=== PATIENT | male | born 1970 | race African-American/Black ===

== ENCOUNTER 2018-06-28 07:48 | Emergency (ER) | payer OTHER ==
[2018-06-28] MEDS ORDERED: TETRACAINE HCL 0.5% OPH SOLN 4 ML OD ONE (08:42)
--- NOTE | 2018-06-28 09:12 | ER Document Report ---
ED General - General Chief Complaint: Cold Symptoms Stated Complaint: COUGH Time Seen by Provider: 06/28/18 08:21 Mode of Arrival: Ambulatory Information source: Patient Notes: 48-year-old male presents emergency department with complaints of a cough, sinus pressure, nasal discharge over the last week. Patient states that the sinus pressure and nasal discharge is resolving. He states that he is continuing to have a productive cough. He is also noted that in the last day his eyes became pink. Patient states that it started in 1 of the eyes and then spread to both. He does note to have purulent drainage from the eye. He denies any pain to the eyes. No trauma or injury. No history of sick contacts. He denies any medical problems. He is not on any medications. He states that he has been using Mucinex [id number] and it has been helping with some of his symptoms. TRAVEL OUTSIDE OF THE [place] IN LAST 30 DAYS: No - HPI Onset: Last week Onset/Duration: Gradual Quality of pain: No pain Severity: None Pain Level: Denies Associated symptoms: Productive cough, Other - sinus pressure. Exacerbated by: Denies Relieved by: Other - mucinex - Related Data Allergies/Adverse Reactions: No Known Allergies Allergy (Verified 06/28/18 07:49) Past Medical History - General Information source: Patient - Social History Smoking Status: Current Every Day Smoker Frequency of alcohol use: None Drug Abuse: Marijuana Family History: Reviewed & Not Pertinent Patient has suicidal ideation: No Patient has homicidal ideation: No - Past Medical History Cardiac Medical History: Reports: Hx Hypertension Denies: Hx Coronary Artery Disease, Hx Heart Attack Pulmonary Medical History: Reports: Hx Pneumonia - 2007 Denies: Hx Asthma, Hx Bronchitis, Hx COPD Neurological Medical History: Denies: Hx Cerebrovascular Accident, Hx Seizures Renal/ Medical History: Denies: Hx Peritoneal Dialysis Musculoskeletal Medical History: Denies Hx Arthritis Past Surgical History: Denies: Hx Pacemaker - Immunizations Hx Diphtheria, Pertussis, Tetanus Vaccination: No Review of Systems - Review of Systems Constitutional: No symptoms reported EENT: Nose discharge, Other - pink eye Respiratory: Cough Gastrointestinal: No symptoms reported Genitourinary: No symptoms reported Male Genitourinary: No symptoms reported Musculoskeletal: No symptoms reported Skin: No symptoms reported Hematologic/Lymphatic: No symptoms reported Neurological/Psychological: No symptoms reported -: Yes All other systems reviewed and negative Physical Exam - Vital signs Vitals: Temp Pulse Resp BP Pulse Ox 97.4 F 93 18 156/106 H 97 06/28/18 07:52 06/28/18 07:52 06/28/18 07:52 06/28/18 07:52 06/28/18 07:52 - Notes Notes: PHYSICAL EXAMINATION: GENERAL: Well-appearing, well-nourished and in no acute distress. HEAD: Atraumatic, normocephalic. EYES: Pupils equal round and reactive to light, extraocular movements intact, injected conjunctiva. Purulent drainage from the left eye. ENT: Nares patent, oropharynx clear without exudates. Moist mucous membranes. NECK: Normal range of motion, supple without lymphadenopathy LUNGS: Breath sounds clear to auscultation bilaterally and equal. No wheezes rales or rhonchi. HEART: Regular rate and rhythm without murmurs ABDOMEN: Soft, nontender, nondistended abdomen. No guarding, no rebound. No masses appreciated. Musculoskeletal: Normal range of motion, no pitting or edema. No cyanosis. NEUROLOGICAL: Cranial nerves grossly intact. Normal speech, normal gait. Normal sensory, motor exams PSYCH: Normal mood, normal affect. SKIN: Warm, Dry, normal turgor, no rashes or lesions noted. Course - Re-evaluation Re-evalutation: 06/28/18 09:11 Conjunctiva-was stained with fluorescein and evaluated under Marie lamp. No corneal abrasions, dendritic, or punctate lesions appreciated. 06/28/18 09:16 Patient likely has conjunctivitis. I will start antibiotic eye ointment. I will also prescribe tessalon perles, albuterol inhaler, and antibiotic for the patient's cough x 1 week. Patient instructed to take the medication prescribed as directed, to follow-up with his primary care physician this week, and to return to the emergency department for any worsening symptoms. Patient is agreeable with the plan of care. - Vital Signs Vital signs: Temp Pulse Resp BP Pulse Ox 98.4 F 81 16 152/101 H 96 06/28/18 09:27 06/28/18 09:27 06/28/18 09:27 06/28/18 09:27 06/28/18 09:27 Discharge - Discharge Clinical Impression: Cough Conjunctivitis Qualifiers: Conjunctivitis type: acute Acute conjunctivitis type: unspecified Laterality: bilateral Qualified Code(s): H10.33 - Unspecified acute conjunctivitis, bilateral Condition: Good Disposition: HOME, SELF-CARE Instructions: Conjunctivitis ([facility]), Cough Suppressant & Expectorant Medications Prescriptions: Benzonatate [Tessalon Perles 100 mg Capsule] 100 mg PO Q8HP PRN #15 capsule PRN Reason: Albuterol Sulfate [Proair HFA Inhalation Aerosol 8.5 gm MDI] 2 puff IH Q4H PRN #1 mdi PRN Reason: Azithromycin [Zithromax 250 mg Tablet] 250 mg PO ASDIR PRN #6 tablet PRN Reason: Erythromycin Base [Erythromycin Oph 1 gm Oint Ud] 1 applic OP Q4 5 Days #1 tube Forms: Return to Work Referrals: MIREYA HOLLAND MD [ACTIVE STAFF] - Follow up as needed
[2018-06-28 09:31] VITALS: BP 152/101
== END 2018-06-28 09:29 | disposition home or self-care (01) ==
LOC: ER 07:48
DX: R05 Cough (principal); H10.023 Other mucopurulent conjunctivitis, bilateral; J34.89 Other specified disorders of nose and nasal sinuses; I10 Essential (primary) hypertension; F17.200 Nicotine dependence, unspecified, uncomplicated; F12.10 Cannabis abuse, uncomplicated; Z87.01 Personal history of pneumonia (recurrent)
CPT/HCPCS: 99283; J3490

== ENCOUNTER 2018-08-10 04:44 | Emergency (ER) | payer OTHER ==
[2018-08-10] MEDS ORDERED: MORPHINE SULFATE 10 MG/ML INJ IM ONE (05:08)
[2018-08-10] MEDS ORDERED: ONDANSETRON 4 MG TAB.RAPDIS PO ONE (05:08)
--- NOTE | 2018-08-10 05:15 | ER Document Report ---
ED General - General Chief Complaint: Shoulder Pain Stated Complaint: SHOULDER PAIN Time Seen by Provider: 08/10/18 05:03 Primary Care Provider: MOI ANDREW MD [ACTIVE STAFF] - Follow up in 1 week Notes: Patient is a 48-year-old male that comes to the emergency department for chief complaint of pain in his upper back and left shoulder area. He states that the pain started to feel like tightness, this was worse with moving his arm and shoulder, he states this became worse over the course of the evening and night, he states when he woke up he had a sharp pain and now whenever he tries to move it he gets severe pain. 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 He denies numbness, incontinence, fever, pain in his chest, shortness of breath, or headache. Patient is on blood pressure medication. He denies IV drug abuse. is at bedside. TRAVEL OUTSIDE OF THE [place] IN LAST 30 DAYS: No - Related Data Allergies/Adverse Reactions: No Known Allergies Allergy (Verified 08/10/18 04:45) Past Medical History - General Information source: Patient - Social History Smoking Status: Never Smoker Frequency of alcohol use: None Drug Abuse: None Lives with: Family Family History: Reviewed & Not Pertinent - Past Medical History Cardiac Medical History: Reports: Hx Hypertension Denies: Hx Coronary Artery Disease, Hx Heart Attack Pulmonary Medical History: Reports: Hx Pneumonia - 2007 Denies: Hx Asthma, Hx Bronchitis, Hx COPD Neurological Medical History: Denies: Hx Cerebrovascular Accident, Hx Seizures Renal/ Medical History: Denies: Hx Peritoneal Dialysis Musculoskeletal Medical History: Denies Hx Arthritis Past Surgical History: Denies: Hx Pacemaker - Immunizations Hx Diphtheria, Pertussis, Tetanus Vaccination: Yes Review of Systems - Review of Systems Constitutional: No symptoms reported EENT: No symptoms reported Cardiovascular: No symptoms reported Respiratory: No symptoms reported Gastrointestinal: No symptoms reported Genitourinary: No symptoms reported Male Genitourinary: No symptoms reported Musculoskeletal: See HPI Skin: No symptoms reported Hematologic/Lymphatic: No symptoms reported Neurological/Psychological: No symptoms reported Physical Exam - Vital signs Vitals: Temp Pulse Resp BP Pulse Ox 97.8 F 78 20 146/97 H 96 08/10/18 04:59 08/10/18 04:59 08/10/18 04:59 08/10/18 04:59 08/10/18 04:59 - Notes Notes: GENERAL: Patient is in obvious pain, moves stiffly, grimaces with movement HEAD: Normocephalic, atraumatic. EYES: Pupils equal, round, and reactive to light. Extraocular movements intact. ENT: Oral mucosa moist, tongue midline. Oropharynx unremarkable. Airway patent. Nares patent, no nasal septal hematoma, TM's intact. NECK: Full range of motion. Supple. Trachea midline. LUNGS: Clear to auscultation bilaterally, no wheezes, rales, or rhonchi. No respiratory distress. HEART: Regular rate and rhythm. No murmur ABDOMEN: Soft, non-tender. Non-distended. Bowel sounds present in all 4 quadrants. GENITOURINARY: Deferred EXTREMITIES: Moves all 4 extremities spontaneously. No edema, normal radial and dorsalis pedis pulses bilaterally. No cyanosis. Pain in the back with movement of the left shoulder. Normal desolderer, normal strength. BACK: Pain over the left paracervical, trapezius, and possibly sternocleidomastoid muscle. Pain with movement of the neck laterally to the left and this is very limited. No midline tenderness of the neck, normal back exam otherwise, no saddle anesthesia, normal distal neurovascular exam. NEUROLOGICAL: Alert and oriented x3. Normal speech. [cranial nerves II through XII grossly intact]. PSYCH: Normal affect, normal mood. SKIN: Warm, dry, normal turgor. No rashes or lesions noted. Course - Re-evaluation Re-evalutation: Patient has obvious pain, can barely look to the left at all, has an obvious palpable muscle spasm in the left upper back at the trapezius, paracervical, and slightly at the sternocleidomastoid. Pain with moving the left shoulder on exam. Unremarkable back exam otherwise, unremarkable neurological exam, no chest pain, no shortness of breath, no cardiac symptoms. Vital signs unremarkable. EKG shows sinus rhythm at a rate of 78 with no T wave inversions or ST segment changes in consecutive leads. There is artifact. Borderline axis. QTC of 461, GA 184. On reevaluation patient is much more comfortable. His blood pressure is elevated but he states he is due for his morning blood pressure medication. He does not have a headache. He does not have chest pain. He is significantly improved from prior and is much more comfortable. Requesting to go home with his . He will take his blood pressure medication when he gets home. He states he needs primary care here however, he was provided with follow-up. Discussed treatment, expectations, follow-up, and return precautions. Patient states understanding and agreement. - Vital Signs Vital signs: Temp Pulse Resp BP Pulse Ox 98.5 F 81 18 189/118 H 95 08/10/18 05:54 08/10/18 05:54 08/10/18 05:54 08/10/18 05:54 08/10/18 05:54 Discharge - Discharge Clinical Impression: Upper back pain on left side Condition: Stable Disposition: HOME, SELF-CARE Additional Instructions: Your evaluation is consistent with muscle strain and spasm in the left paracervical, trapezius, and probably sternocleidal muscles. Apply heat to the area, do gentle stretches, massage, take anti-inflammatory as prescribed, take muscle relaxer as prescribed. Use precautions as listed. Follow-up with primary care, see referral. Return for any concerning symptoms including numbness, fever, difficulty breathing, or any other concerning or worsening symptoms. Prescriptions: Diazepam [Valium 5 mg Tablet] 1 - 2 tab PO TID PRN #12 tablet PRN Reason: Naproxen 500 mg PO BID PRN #14 tablet PRN Reason: Forms: Return to Work Referrals: MOI ANDREW MD [ACTIVE STAFF] - Follow up in 1 week
[2018-08-10 05:59] VITALS: BP 189/118
--- NOTE | 2018-08-10 22:51 | EKG REPORT ---
SEVERITY:- BORDERLINE ECG - SINUS RHYTHM PROBABLE LEFT ATRIAL ABNORMALITY BORDERLINE LEFT AXIS DEVIATION BORDERLINE T ABNORMALITIES, DIFFUSE LEADS : Confirmed by: [place] 10-Aug-2018 22:50:45
== END 2018-08-10 05:59 | disposition home or self-care (01) ==
LOC: ER 04:44
DX: M54.89 Other dorsalgia (principal); M62.830 Muscle spasm of back; M25.512 Pain in left shoulder; I10 Essential (primary) hypertension; Z79.899 Other long term (current) drug therapy
CPT/HCPCS: 93005; 99283; 96372; 93010; S0119; J2270

== ENCOUNTER 2020-04-02 07:09 | Emergency (ER) | payer BC, OTHER ==
[2020-04-02 07:18] VITALS: BP 139/82
--- NOTE | 2020-04-02 08:21 | ER Document Report ---
ED General - General Chief Complaint: Foot Pain Stated Complaint: FOOT PAIN Time Seen by Provider: 04/02/20 08:20 Primary Care Provider: RENETTA LOVELL DPM [ACTIVE STAFF] - Follow up as needed SHELLY BOWLES MD [ACTIVE STAFF] - Follow up as needed TRAVEL OUTSIDE OF THE [place] IN LAST 30 DAYS: No - HPI Notes: 50-year-old male presents to the emergency room for complaints of right heel pain is been bothering him for the last week. Patient denies any trauma or fall. Patient was concerned he may have a heel spur. Has not tried any new shoe inserts., Has not tried any Tylenol or ibuprofen. States he has been soaking his foot and Epson salts a couple times which did help.. Has not tried any heat or icing. Reports pain is worse in the morning with his first step. Denies fevers, chills, chest pain,palpitations, shortness of breath, dyspnea, nausea, vomiting, diarrhea, abdominal pain, hematuria,blurred vision, double vision, loss of vision, speech changes, LH, dizziness, syncope, headaches, wheezing, ST, URI, neck pain, weakness, bowel or bladder dysfunction, saddle anesthesia, numbness or tingling in bilateral upper or lower extremities equally, muscle paralysis, weakness in bilateral upper or lower extremities equally or rash. Denies IV drug use. MEDICATIONS: I agree with the patient medications as charted by the RN. ALLERGIES: I agree with the allergies as charted by the RN. PAST MEDICAL HISTORY/PAST SURGICAL HISTORY: Reviewed and agree as charted by RN. SOCIAL HISTORY: Reviewed and agree as charted by RN. FAMILY HISTORY: No significant familial comorbid conditions directly related to patient complaint EXAM: Reviewed vital signs as charted by RN. REVIEW OF SYSTEMS:reviewed vital signs by RN CONSTITUTIONAL : Denies fever, chills, or sweats. Denies recent illness. EENT: Denies eye, ear, throat, or mouth pain or symptoms. Denies nasal or sinus congestion or discharge. Denies throat, tongue, or mouth swelling or difficulty swallowing. CARDIOVASCULAR: Denies chest pain. Denies palpitations or racing or irregular heart beat. Denies ankle edema. RESPIRATORY: Denies cough, cold, or chest congestion. Denies shortness of breath, difficulty breathing, or wheezing. GASTROINTESTINAL: Denies abdominal pain or distention. Denies nausea, vomiting, or diarrhea. Denies blood in vomitus, stools, or per rectum. Denies black, tarry stools. Denies constipation. GENITOURINARY: Denies difficulty urinating, painful urination, burning, frequency, blood in urine, or discharge. MUSCULOSKELETAL: Denies back or neck pain or stiffness. Denies joint pain or swelling. SKIN: Denies rash, lesions or sores. HEMATOLOGIC : Denies easy bruising or bleeding. LYMPHATIC: Denies swollen, enlarged glands. NEUROLOGICAL: Denies confusion or altered mental status. Denies passing out or loss of consciousness. Denies dizziness or lightheadedness. Denies headache. Denies weakness or paralysis or loss of use of either side. Denies problems with gait or speech. Denies sensory loss, numbness, or tingling. Denies seizures. PSYCHIATRIC: Denies anxiety or stress. Denies depression, suicidal ideation, or homicidal ideation. ALL OTHER SYSTEMS REVIEWED AND NEGATIVE. Dictation was performed using [employer] voice recognition software PHYSICAL EXAMINATION: GENERAL: Well-appearing, well-nourished and in no acute distress. HEAD: Atraumatic, normocephalic. EYES: Pupils equal round and reactive to light, extraocular movements intact, sclera anicteric, conjunctiva are normal. ENT: Nares patent, oropharynx clear without exudates. Moist mucous membranes. NECK: Normal range of motion, supple without lymphadenopathy LUNGS: Breath sounds clear to auscultation bilaterally and equal. No wheezes rales or rhonchi. HEART: Regular rate and rhythm without murmurs ABDOMEN: Soft, nontender, nondistended abdomen. No guarding, no rebound. No masses appreciated. Musculoskeletal: Normal range of motion, no pitting or edema. No cyanosis. right heel pain on palpaiton. Unable to palpate a step-off. No open lesions. squeeze test negative. dtr +2 BLE. Limited APROM. No pain to metatarsals on right or off. distal pulses + 2 in BUE. full motor and sensory function. No vascular compromise. Ankle exam within normal limits. No noted lacerations, lesions, ulcers or break in the skin. NEUROLOGICAL: Cranial nerves grossly intact. Normal speech, normal gait. Normal sensory, motor exams PSYCH: Normal mood, normal affect. SKIN: Warm, Dry, normal turgor, no rashes or lesions noted. - Related Data Allergies/Adverse Reactions: No Known Allergies Allergy (Verified 08/10/18 04:45) Home Medications: bp med Past Medical History - General Information source: Patient - Social History Smoking Status: Current Every Day Smoker Chew tobacco use (# tins/day): No Frequency of alcohol use: Occasional Drug Abuse: None Family History: Reviewed & Not Pertinent Patient has homicidal ideation: No - Past Medical History Cardiac Medical History: Reports: Hx Hypertension Denies: Hx Coronary Artery Disease, Hx Heart Attack Pulmonary Medical History: Reports: Hx Pneumonia - 2007 Denies: Hx Asthma, Hx Bronchitis, Hx COPD Neurological Medical History: Denies: Hx Cerebrovascular Accident, Hx Seizures Renal/ Medical History: Denies: Hx Peritoneal Dialysis Musculoskeletal Medical History: Denies Hx Arthritis Past Surgical History: Denies: Hx Pacemaker - Immunizations Hx Diphtheria, Pertussis, Tetanus Vaccination: Yes Physical Exam - Vital signs Vitals: Temp Pulse Resp BP Pulse Ox 97.8 F 82 16 139/82 H 95 04/02/20 07:16 04/02/20 07:16 04/02/20 07:16 04/02/20 07:16 04/02/20 07:16 Course - Re-evaluation Re-evalutation: 04/02/20 15:21 afebrile, VSS. X-ray of right heel negative for any acute fracture dislocation or foreign body. Discussed patient following up with electronic publishing specialist, discussed new shoe inserts, apply heat 20 minutes on 20 and soft several times a day, taking naproxen as needed for pain, discussed footwear, discussed stretching of his heels etc. Patient offered a postop shoe. After performing a Medical Screening Examination, I estimate there is LOW risk for OPEN FRACTURE, COMPARTMENT SYNDROME, DEEP VENOUS THROMBOSIS, ACUTE TENDON RUPTURE, or NEUROVASCULAR INJURY thus I consider the discharge disposition reasonable. I have reevaluated this patient multiple times and no significant life threatening changes are noted. The patient and I have discussed the diagnosis and risks, and we agree with discharging home to closely follow-up with their primary doctor or the referral orthopedist with the understanding that symptoms and presentations can change. We also discussed returning to the Emergency Department immediately if new or worsening symptoms occur. We have discussed the symptoms which are most concerning (e.g., changing or worsening pain, numbness, weakness) that necessitate immediate return 04/02/20 15:23 - Vital Signs Vital signs: Temp Pulse Resp BP Pulse Ox 97.8 F 82 16 139/82 H 95 04/02/20 09:20 04/02/20 07:16 04/02/20 07:16 04/02/20 07:16 04/02/20 07:16 Discharge - Discharge Clinical Impression: Pain of right heel Condition: Stable Disposition: HOME, SELF-CARE Instructions: Plantar Fasciitis or Heel Spur ([facility]) Additional Instructions: Return immediately for any new or worsening symptoms. Follow up with primary care provider, call tomorrow to make followup appointment. Prescriptions: Naproxen 500 mg PO BID #10 tablet Forms: Return to Work Referrals: RENETTA LOVELL DPM [ACTIVE STAFF] - Follow up as needed SHELLY BOWLES MD [ACTIVE STAFF] - Follow up as needed
--- NOTE | 2020-04-02 09:04 | RADIOLOGY REPORT (SQ) ---
EXAM DESCRIPTION: OS CALCIS/HEEL RIGHT IMAGES COMPLETED DATE/TIME: 04/02/2020 8:37 am REASON FOR STUDY: right heel pain x 1 week COMPARISON: None. NUMBER OF VIEWS: Two views. TECHNIQUE: Plantar and lateral images acquired of the right calcaneous. LIMITATIONS: None. FINDINGS: MINERALIZATION: Normal. BONES: No acute fracture or dislocation. No worrisome bone lesions. JOINTS: No effusions. SOFT TISSUES: No soft tissue swelling. No foreign body. OTHER: No other significant finding. IMPRESSION: NEGATIVE STUDY OF THE RIGHT CALCANEOUS. NO RADIOGRAPHIC EVIDENCE OF ACUTE INJURY. TECHNICAL DOCUMENTATION: JOB ID: [id number] [employer]- All Rights Reserved Reading location - IP/workstation name: [email or web address]
[2020-04-02] MEDS ORDERED: IBUPROFEN 800 MG TABLET PO ONE (09:09)
== END 2020-04-02 09:20 | disposition home or self-care (01) ==
LOC: ER 07:09
DX: M79.671 Pain in right foot (principal); F17.200 Nicotine dependence, unspecified, uncomplicated; I10 Essential (primary) hypertension; Z79.899 Other long term (current) drug therapy
CPT/HCPCS: 99283

== ENCOUNTER 2020-05-09 22:20 | Emergency (ER) | payer BC ==
[2020-05-09 22:27] VITALS: BP 135/77
--- NOTE | 2020-05-09 23:04 | ER Document Report ---
ED Blood Pressure Problem - General Chief Complaint: Headache Stated Complaint: HAS NOT TAKEN MEDICATION FOR BLOOD PRESSURE Time Seen by Provider: 05/09/20 22:59 Primary Care Provider: NILAY RAMIREZ PA [NO LOCAL MD] - Follow up tomorrow Mode of Arrival: Ambulatory Information source: Patient Notes: 50-year-old male presented to ED for elevated blood pressure and slight headache. He states his not been taking his blood pressure medicines the way he was supposed to. He states he went to work today and he told him that he was not feeling good so they told him he had to go home and he had to be tested for Covid. He states he has not had any fevers congestion runny nose or any other Covid symptoms. He states he was not feeling good because he was not taking his blood pressure medicine. He states he went home took his blood pressure medicine and the headache went away and his blood pressure is much lower. He states he does smoke 1/2 pack a day drinks on weekends and does not use any illicit drugs. He states he does take lisinopril hydrochlorothiazide. He does have a dry cough that sounds like a reaction to the lisinopril I have discussed this with him and instructed him to please follow-up with his primary care doctor promptly to see if he needs to get off of his lisinopril and get on a different blood pressure medication. Patient is alert oriented respirations regular nonlabored speaking in full sentences lungs are clear to auscultation. Constitutional: Negative for fever. HENT: Negative for sore throat. Eyes: Negative for visual changes. Cardiovascular: Negative for chest pain. Respiratory: Patient does have a drycough but no congestion lungs are clear. Gastrointestinal: Negative for abdominal pain, vomiting or diarrhea. Genitourinary: Negative for dysuria. Musculoskeletal: Negative for back pain. Skin: Negative for rash. Neurological: States he had a headache earlier in the day but after he took his blood pressure medicines and blood pressure headache was relieved 10 point ROS negative except as marked above and in HPI. PHYSICAL EXAMINATION: GENERAL: Well-appearing, well-nourished and in no acute distress. HEAD: Atraumatic, normocephalic. EYES: Pupils equal round extraocular movements intact, conjunctiva are normal. ENT: Nares patent NECK: Normal range of motion LUNGS: No respiratory distress, dry cough, lungs clear Musculoskeletal: Normal range of motion NEUROLOGICAL: Normal speech, normal gait. PSYCH: Normal mood, normal affect. SKIN: Warm, Dry, normal turgor, no rashes or lesions noted. TRAVEL OUTSIDE OF THE [place] IN LAST 30 DAYS: No - HPI Patient complains to provider of: High blood pressure Onset: Other - Chronic blood pressure she has not been taking his medications appropriately Onset/Duration: Better Quality of pain: Achy - Had a headache before taking his blood pressure medicine that is now better Severity: Mild Problem is: Chronic problem Pt currently taking medication for problem: Yes - He takes it Associated symptoms: Headache Similar symptoms previously: Yes Recently seen / treated by doctor: No - Related Data Allergies/Adverse Reactions: No Known Allergies Allergy (Verified 05/09/20 22:52) Past Medical History - General Information source: Patient - Social History Smoking Status: Current Every Day Smoker Cigarette use (# per day): Yes - Half pack a day Smoking Education Provided: Yes - 3 minutes Frequency of alcohol use: Social Drug Abuse: None Occupation: [employer] Lives with: Family Family History: Reviewed & Not Pertinent Patient has suicidal ideation: No Patient has homicidal ideation: No - Past Medical History Cardiac Medical History: Reports: Hx Hypertension Pulmonary Medical History: Reports: Hx Pneumonia - 2008 [facility] Medical History: Reports: None Neurological Medical History: Reports: None Endocrine Medical History: Reports: None Renal/ Medical History: Reports: None Malignancy Medical History: Reports None GI Medical History: Reports: None Musculoskeletal Medical History: Reports None Skin Medical History: Reports None Psychiatric Medical History: Reports: None Traumatic Medical History: Reports: None Infectious Medical History: Reports: None Surgical Hx: Negative - Immunizations Immunizations up to date: Yes Hx Diphtheria, Pertussis, Tetanus Vaccination: Yes Physical Exam - Vital signs Vitals: Temp Pulse Resp BP Pulse Ox 98.2 F 67 20 135/77 H 94 05/09/20 22:26 05/09/20 22:26 05/09/20 22:26 05/09/20 22:26 05/09/20 22:26 Course - Re-evaluation Re-evalutation: 05/09/20 23:09 Patient states headache is much better since taking his blood pressure medications. We have discussed the fact that he has a dry cough and he needs to call his primary care tomorrow morning and discuss this dry cough with his taking lisinopril. Patient verbalized understanding and agreement with this. Patient was discharged home. - Vital Signs Vital signs: Temp Pulse Resp BP Pulse Ox 98.2 F 67 20 135/77 H 94 05/09/20 22:26 05/09/20 22:26 05/09/20 22:26 05/09/20 22:26 05/09/20 22:26 Discharge - Discharge Clinical Impression: Blood pressure Condition: Stable Disposition: HOME, SELF-CARE Additional Instructions: HIGH BLOOD PRESSURE REQUIRING TREATMENT: Your blood pressure is high. This is called "hypertension." Today's reading was ____135 /77 (normal is less than 140/90). Your history and exam suggest that this is not a temporary problem. You need treatment of your blood pressure. If left untreated, high blood pressure greatly increases your risk of heart attack and stroke. Please don't ignore this problem. If you have blood pressure medicine but aren't using it regularly, start taking it again. Some simple things you can do to help are: Get some aerobic exercise for at least 20 minutes on a daily basis. (See your doctor before beginning any new exercise program.) Eat a low-fat diet. Lose excess weight. Avoid salty foods and avoid adding salt to any of the foods you eat. Avoid diet pills, decongestants, "energizing" herbs, and other medicines that elevate blood pressure. There are many different medicines that treat blood pressure. If your medication causes unpleasant side effects, call your doctor. There are others you can try. Treating hypertension is a life-long investment in your health. HYDROCHLOROTHIAZIDE: Hydrochlorothiazide is a diuretic medication. Diuretics are often called "water pills." The medicine flushes excess salt and water from the body. Diuretics are used for fluid retention (such as heart failure, cirrhosis, or lung disease) and for blood pressure control. Often hydrochlorothiazide is combined with other medicines in the same pill. Most patients prefer to take the medicine in the morning. Hydrochlorothiazide makes extra urine, which can be a problem if you take the pill at night. Diuretics make you lose potassium. Sometimes a good diet with plenty of fruit is enough to replace it. Sometimes a potassium supplement is necessary. Or, hydrochlorothiazide may be combined with medicines that prevent potassium loss. We usually recommend a blood potassium test in a few weeks. Contact your doctor if you develop extreme fatigue, muscle weakness, lethargy, confusion, or palpitations. ANGIOTENSIN CONVERTING ENZYME INHIBITOR MEDICATION: "SAGAR inhibitor" drugs are used to lower high blood pressure (or to reduce the "work" of the heart in patients with heart failure). These drugs block an enzyme that makes your blood vessels constrict and makes you retain salt. The result is lower blood pressure. SAGAR inhibitors cause few side effects. The most common side effect is a dry nagging cough. Occasionally, lightheadedness may occur while you get used to the medicine. Some patients may retain extra potassium (this is a problem if you are taking potassium supplements, potassium-containing salt substitutes, or a potassium-retaining drug such as triamterene, spironolactone, or amiloride). If you are taking lithium, the lithium level must be rechecked after starting an SAGAR inhibitor. SAGAR inhibitors should NOT be used during . Contact the doctor or return if you develop severe lightheadedness, wheeze, weakness, palpitations or other new symptoms. Currently taking lisinopril hydrochlorothiazide. You need to follow-up with your primary care doctor and ask him if this dry cough you have is from the lisinopril if it is you need to get on a different medication. Call your doctor tomorrow do not wait for follow-up. FOLLOW-UP CARE: If you have been referred to a physician for follow-up care, call the physicians office for an appointment as you were instructed or within the next two days. If you experience worsening or a significant change in your symptoms, notify the physician immediately or return to the Emergency Department at any time for re-evaluation. Forms: Elevated Blood Pressure, Smoking Cessation Education, Return to Work Referrals: NILAY RAMIREZ PA [NO LOCAL MD] - Follow up tomorrow
== END 2020-05-09 23:15 | disposition home or self-care (01) ==
LOC: ER 22:20
DX: I10 Essential (primary) hypertension (principal); R51.9 Headache, unspecified; F17.210 Nicotine dependence, cigarettes, uncomplicated
CPT/HCPCS: 99283; 99406